=== PATIENT | male | born 1945 | race Caucasian/White ===

== ENCOUNTER 2021-06-25 16:41 | Emergency (ER) | payer OTHER ==
[~2021-06-25 16:41] MED LIST: AMARYL2 MG PO; ASPIRIN EC81 MG PO; BENTYL10 MG PO; CARDURA4 MG PO; CINNAMON500 MG PO; COLESTIPOL HCL1 GM PO; COZAAR100 MG PO; GARLIC1000 MG PO; LOVASTATIN40 MG PO; METFORMIN HCL500 MG PO; MVI PO; NORCO 5-325 TA1 EACH PO; PROSCAR5 MG PO; TUMERIC CURCUMIN PO; ZOFRAN8 MG PO
[2021-06-25] MEDS ORDERED: MEDROL 4MG DOSEP4 MG PO (19:18)
[2021-06-25] MEDS ORDERED: CYCLOBENZAPRINE10 MG PO (19:18)
== END 2021-06-25 19:37 | disposition home or self-care (01) ==
LOC: FER 16:41
DX: S13.4XXA Sprain of ligaments of cervical spine, initial encounter (principal); S23.3XXA Sprain of ligaments of thoracic spine, initial encounter; M62.838 Other muscle spasm; E11.9 Type 2 diabetes mellitus without complications; I10 Essential (primary) hypertension; V43.02XA Car driver injured in collision with other type car in nontraffic accident, initial encounter; Y92.410 Unspecified street and highway as the place of occurrence of the external cause
CPT/HCPCS: 70450; 71045; 72125; 72131

== ENCOUNTER 2022-04-07 13:34 | Emergency (ER) | payer OTHER ==
[~2022-04-07 13:34] MED LIST changes: +CYCLOBENZAPRINE10 MG PO; +MEDROL 4MG DOSEP4 MG PO
[2022-04-07 16:11] LABS: BASOPHIL 0.6 % (0-2); HCT 40.2 % (42.0-52.0); HGB 13.5 g/dl (13.2-18.0); LYMPHOCYTE 32.8 % (15-48); MCH 31.2 pg (25.0-31.0); MCHC 33.6 g/dL (32.0-36.0); MCV 92.8 fL (78.0-100.0); MONOCYTE 7.7 % (0-12); MPV 9.9 fL (6.0-9.5); NEUTROPHIL 57.7 % (41-80); NRBC 0; PLT 189 K/uL (150-400); RBC 4.33 M/uL (4.70-6.00); RDW 12.5 % (11.5-14.0); WBC 8.1 K/uL (4.0-10.5)
[2022-04-07 16:14] LABS: BILIRUBIN NEGATIVE (NEGATIVE); BLOOD NEGATIVE Ery/uL (NEGATIVE); CLARITY CLEAR (CLEAR); COLOR YELLOW (YELLOW); GLUCOSE (U) 3+ mg/dL (NORMAL); LEUKOCYTES NEGATIVE Leu/uL (NEGATIVE); NITRITE NEGATIVE (NEGATIVE); PROTEIN NEGATIVE (NEGATIVE); SPECIFIC GRAVITY 1.025 (1.001-1.030); UROBILINOGEN 0.2 mg/dL (0.2-1.0); pH 5.5 (5.0-9.0)
[2022-04-07 17:32] LABS: ALBUMIN 3.8 g/dL (3.4-5.0); BUN/CREAT RATIO (CALC) 15.7 RATIO; CREATININE 0.89 mg/dL (0.67-1.17); GLOBULIN (CALCULATION) 3.4 g/dL; POTASSIUM 4.7 mmol/L (3.5-5.1); TOTAL PROTEIN 7.2 g/dL (6.4-8.2)
[2022-04-07] MEDS ORDERED: PREPARATION H1 EAC1 PR (22:55)
[2022-04-08 04:54] LABS: BILIRUBIN - TOTAL 0.2 mg/dL (0.2-1.0)
== END 2022-04-07 23:25 | disposition home or self-care (01) ==
LOC: FER 13:34
PROVIDERS: Nurse Practitioner Family
DX: K62.5 Hemorrhage of anus and rectum (principal); E11.65 Type 2 diabetes mellitus with hyperglycemia; R10.84 Generalized abdominal pain; I10 Essential (primary) hypertension
CPT/HCPCS: 36415; 80053; 81003; 82009; 85025; J7030; Q9967